=== PATIENT | female | born 1985 | race Caucasian/White ===

== ENCOUNTER 2023-11-17 10:06 | Outpatient (OUT) | payer OTHER, SELFPAY ==
--- NOTE | 2023-11-17 10:09 | MM_ITS ---
Patient Name: ANTONIETTA TOM MR#: [id number] : 1985 Exam Date: 11/17/2023 Ordering Doctor: DR Marlo Zimmer . RADIOLOGY REPORT PROCEDURE: MM TOMOSYNTHESIS SCREENING BI COMPARISON: None. INDICATIONS: screening Calculator Name NCI Breast Cancer Risk Assessment Tool 5 Year Breast Cancer Risk 0.40% Lifetime Breast Cancer Risk 9.20% Personal Breast Cancer No Personal Ovarian Cancer No Treatments None Family Cancers Grandfather-maternal with lung cancer at age 77. LOCATION: [facility] BREAST COMPOSITION: Heterogeneously dense,which may obscure small masses. FINDINGS: DIAGNOSTIC CATEGORY 0--INCOMPLETE: NEED ADDITIONAL IMAGING EVALUATION. Scattered benign-appearing calcifications are present. Multiple bilateral oval and round densities possibly representing fibrocystic disease. As there are no prior exams, bilateral whole breast ultrasound is recommended for further evaluation RECOMMENDATIONS: ULTRASOUND: BILATERAL BREASTS PLEASE NOTE: A NORMAL MAMMOGRAM DOES NOT EXCLUDE THE POSSIBILITY OF BREAST CANCER. A CLINICALLY SUSPICIOUS PALPABLE LUMP SHOULD BE BIOPSIED. Dictated by: Tripp Iraheta MD on 11/17/2023 at 11:30 Approved by: Tripp Iraheta MD on 11/17/2023 at 11:42
[2023-11-17 10:57] LABS: Basophils Absolute Auto 0.1 10^3/uL (0.0-0.1); Basophils Percent Auto 0.9 % (0.2-2.0); Eosinophils Absolute Auto 0.3 10^3/uL (0.0-0.7); Eosinophils Percent Auto 4.5 % (0.9-7.0); Hematocrit 37.1 % (36.0-48.0); Immature Granulocytes Abs Auto 0.02 10^3/uL (0.00-0.03); Immature Granulocytes Pct Auto 0.4 % (0.0-0.5); Lymphocytes Absolute Auto 1.1 10^3/uL (1.2-3.8); Lymphocytes Percent Auto 20.2 % (20.5-60.0); Mean Corpuscular HGB Conc 32.3 g/dL (29.9-35.2); Mean Corpuscular Hemoglobin 28.6 pg (26.7-34.0); Mean Corpuscular Volume 88.3 fL (81.0-99.0); Mean Platelet Volume 10.3 fL (9.5-13.5); Monocytes Absolute Auto 0.5 10^3/uL (0.3-0.8); Monocytes Percent Auto 8.5 % (1.7-12.0); Neutrophils Absolute Auto 3.6 10^3/uL (1.4-6.5); Neutrophils Percent Auto 65.5 % (43.0-75.0); Platelet Count 228 10^3/uL (150-450); White Blood Count 5.5 10^3/uL (4.0-11.0)
[2023-11-17 12:02] LABS: Alanine Aminotransferase 16 U/L (14-59); Albumin Globulin Ratio 0.9; Albumin Level 3.3 g/dL (3.4-5.0); Alkaline Phosphatase 60 U/L (46-116); Anion Gap 10.8; Aspartate Amino Transferase 14 U/L (15-37); BUN Creatinine Ratio 10.4; Bilirubin Total 0.2 mg/dL (0.2-1.0); Calcium 8.1 mg/dL (8.5-10.1); Carbon Dioxide 28.5 mmol/L (21.0-32.0); Chloride 108 mmol/L (98-107); Estimated GFR (African America >60 (>=60); Estimated GFR (Non-African Ame >60 (>=60); Free T3 2.42 pg/mL (2.18-3.98); Globulin 3.8 g/dL; Glucose 98 mg/dL (74-106); Potassium 4.3 mmol/L (3.5-5.1); Sodium 143 mmol/L (136-145); Total Protein 7.1 g/dL (6.4-8.2)
[2023-11-17 12:06] LABS: Estimated Average Glucose 97 mg/dL
[2023-11-17 12:50] LABS: Cholesterol 164 mg/dL (<=200); HDL Cholesterol 54 mg/dL (40-60); LDL Cholesterol Calculated 100.8 mg/dL; Triglycerides 46 mg/dL (<=150); VLDL CHOLESTEROL 9.2 mg/dL
== END 2023-11-17 10:07 | disposition home or self-care (01) ==
LOC: MAMMO 10:06
PROVIDERS: PCP Family Medicine; Visit Provider Family Medicine
DX: Z00.00 Encounter for general adult medical examination without abnormal findings (principal); Z12.31 Encounter for screening mammogram for malignant neoplasm of breast; Z80.1 Family history of malignant neoplasm of trachea, bronchus and lung
CPT/HCPCS: 36415; 77063; 77067; 80053; 80061; 83036; 84436; 84443; 84481; 85025

== ENCOUNTER 2023-11-30 11:28 | Outpatient (OUT) | payer OTHER, SELFPAY ==
--- NOTE | 2023-11-30 11:31 | US_ITS ---
Patient Name: ANTONIETTA TOM MR#: [id number] : 1985 Exam Date: 11/30/2023 Ordering Doctor: DR Marlo Zimmer . RADIOLOGY REPORT PROCEDURE: US BREAST BI COMPLETE COMPARISON: MM TOMOSYNTHESIS SCREENING BI, 11/17/2023. INDICATIONS: Abnormal Mammogram Of Both Breast R92.8 TECHNIQUE: Breast ultrasound was performed, with evaluation focusing only on specific areas of concern. FINDINGS: Bilateral whole breast ultrasound demonstrates numerous bilateral cystic lesion DIAGNOSTIC CATEGORY 2--BENIGN FINDING: measuring up to 1.6 cm on the right and 2.9 cm on the left. The most suspicious lesion is in the left breast measures 1.4 x 0.7 x 1.0 cm with multiple internal septations but no definite color flow. I favor simple and complex cysts, no additional imaging is required. RECOMMENDATIONS: CLINICAL EVALUATION. PLEASE NOTE: A NORMAL ULTRASOUND EXAMINATION DOES NOT EXCLUDE THE POSSIBILITY OF BREAST CANCER. A CLINICALLY SUSPICIOUS PALPABLE LUMP SHOULD BE BIOPSIED. Dictated by: Tripp Iraheta MD on 11/30/2023 at 12:46 Approved by: Tripp Iraheta MD on 11/30/2023 at 12:49
--- OUTSIDE RECORDS SUMMARY | 2023-11-30 11:42 | XMS_ITS | CCD ---
Author Name Unknown Address [address] [place] [id number] Organization [facility] Care Team Providers Care Salon Stylist Name Role Phone DR JULIETH ZIMMER Primary Care Unavailable BIBIANA COLON Attending Unavailable BIBIANA COLON Consulting Unavailable BIBIANA COLON Admitting Unavailable DR ALEX BROWNING Consulting Unavailable DR ALEX BROWNING Admitting Unavailable DR CHAUNCEY ALBERT Primary Care Unavailable DR ALEX BROWNING Attending Unavailable Problems Problem Classification Problem Date Documented Date Episodic/Chronic Immunizations and screening for infectious disease (1 source) Encounter for screening for human papillomavirus (HPV); Translations: [ENC SCREENING HUMAN PAPILLOMAVIRUS] Onset: 02-07-2021 Episodic Other screening for suspected conditions (not mental disorders or infectious disease) (4 sources) Encounter for screening for malignant neoplasm of cervix; Translations: [ENC SCREENING MALIG NEOPLASM CERV] Onset: 01-31-2021 Episodic Results Test Name Value Interpretation Reference Range Facility INSULINon 07-30-2021 Insulin 4.6 uIU/mL Normal 2.6-24.9 [facility] Comment on above: Performed By: #### I NSULIN #### [facility] [address] [place] [address] Dr. Ayde Fletcher CBC AUTO DIFFon 07-29-2021 BASO # 0.0 103/ul Normal 0.0-0.1 [facility] Comment on above: Performed By: #### C BC #### [facility] [address] [place] [address] Dr. Ayde Fletcher Basophils/100 WBC (Bld) 0.5 % Normal 0.2-2.0 [facility] Comment on above: Performed By: #### C BC #### [facility] [address] [place] [address] Dr. Ayde Fletcher EO # 0.2 103/ul Normal 0.0-0.7 [facility] Comment on above: Performed By: #### C BC #### [facility] [address] [place] [address] Dr. Ayde Fletcher Eosinophils/100 WBC (Bld) 3.3 % Normal 0.9-7.0 [facility] Comment on above: Performed By: #### C BC #### [facility] [address] [place] [address] Dr. Ayde Fletcher Erythrocyte distribution width (RBC) [Ratio] 13.5 % Normal 11.0-15.0 [facility] Comment on above: Performed By: #### C BC #### [facility] [address] [place] [address] Dr. Ayde Fletcher Hematocrit (Bld) [Volume fraction] 39.4 % Normal 36.0-48.0 [facility] Comment on above: Performed By: #### C BC #### [facility] [address] [place] [address] Dr. Ayde Fletcher Hemoglobin (Bld) [Mass/Vol] 12.8 g/dL Normal 12.0-16.0 [facility] Comment on above: Performed By: #### C BC #### [facility] [address] [place] [address] Dr. Ayde Fletcher IG # 0.03 10e3/ul Normal 0.00-0.03 [facility] Comment on above: Performed By: #### C BC #### [facility] [address] [place] [address] Dr. Ayde Fletcher IG % 0.5 % Normal 0.0-0.5 [facility] Comment on above: Performed By: #### C BC #### [facility] [address] [place] [address] Dr. Ayde Fletcher LYMPH # 1.2 103/ul Normal 1.2-3.8 [facility] Comment on above: Performed By: #### C BC #### [facility] [address] [place] [address] Dr. Ayde Fletcher Lymphocytes/100 WBC (Bld) 22.1 % Normal 20.5-60.0 [facility] Comment on above: Performed By: #### C BC #### [facility] [address] [place] [address] Dr. Ayde Fletcher MANUAL DIFF REQ NO Normal [facility] Comment on above: Performed By: #### C BC #### [facility] [address] [place] [address] Dr. Ayde Fletcher MCH (RBC) [Entitic mass] 29.4 pg Normal 26.7-34.0 [facility] Comment on above: Performed By: #### C BC #### [facility] [address] [place] [address] Dr. Ayde Fletcher MCHC (RBC) [Mass/Vol] 32.5 g/dL Normal 29.9-35.2 [facility] Comment on above: Performed By: #### C BC #### [facility] [address] [place] [address] Dr. Ayde Fletcher MCV (RBC) [Entitic vol] 90.4 fL Normal 81.0-99.0 [facility] Comment on above: Performed By: #### C BC #### [facility] [address] [place] [address] Dr. Ayde Fletcher MONO # 0.4 103/ul Normal 0.3-0.8 [facility] Comment on above: Performed By: #### C BC #### [facility] [address] [place] [address] Dr. Ayde Fletcher Monocytes/100 WBC (Bld) 7.6 % Normal 1.7-12.0 [facility] Comment on above: Performed By: #### C BC #### [facility] [address] [place] [address] Dr. Ayde Fletcher NEUT # 3.7 103/ul Normal 1.4-6.5 [facility] Comment on above: Performed By: #### C BC #### [facility] [address] [place] [address] Dr. Ayde Fletcher Neutrophils/100 WBC (Bld) 66.0 % Normal 43.0-75.0 [facility] Comment on above: Performed By: #### C BC #### [facility] [address] [place] [address] [address] Ayde Fletcher Platelet mean volume (Bld) [Entitic vol] 10.4 fL Normal 9.5-13.5 [facility] Comment on above: Performed By: #### C BC #### [facility] [address] [place] [address] [address] Ayde Fletcher PLT 188 103/ul Normal 150-450 [facility] Comment on above: Performed By: #### C BC #### [facility] [address] [place] [address] [address] Ayde Fletcher RBC 4.36 106/ul Normal 4.20-5.40 [facility] Comment on above: Performed By: #### C BC #### [facility] [address] [place] [address] [address] Ayde Fletcher WBC 5.5 103/ul Normal 4.0-11.0 [facility] Comment on above: Performed By: #### C BC #### [facility] [address] [place] [address] [address] Ayde Fletcher FREE THYROXINE INDEX T7on FTI 2.90 Normal [facility] Comment on above: Performed By: #### T SH, CMP, T7, LIPID #### [facility] [address] [place] [address] [address] Ayde Fletcher T3U 33.0 % Normal 23.5-40.5 [facility] Comment on above: Performed By: #### T SH, CMP, T7, LIPID #### [facility] [address] [place] [address] [address] Ayde Fletcher T4 [Mass/Vol] 8.80 ug/dL Normal 5.53-11.00 [facility] Comment on above: Performed By: #### T SH, CMP, T7, LIPID #### [facility] [address] [place] [address] [address] Ayde Fletcher GLYCOHEMOGLOBIN A1Con 2020 ADA RECOMMENDATION ADA THERAPEUTIC TARG ET 6.0 - 7.0 ACTION SUGGESTED > 7.0 Normal [facility] Comment on above: Performed By: #### A 1C #### [facility] [address] [place] [address] [address] Ayde Fletcher Glucose [Mass/Vol] 105 mg/dL Normal [facility] Comment on above: Performed By: #### A 1C #### [facility] [address] [place] [address] [address] Ayde Fletcher HbA1c (Bld) [Mass fraction] 5.3 % Normal <=6.0 [facility] Comment on above: Performed By: #### A 1C #### [facility] [address] [place] [address] [address] Ayde Fletcher IRONon 07-29-2021 Iron [Mass/Vol] 69.0 ug/dL Normal 37.0-170.0 [facility] Comment on above: Performed By: #### I ISAAC #### [facility] [address] [place] [address] Dr. Ayde Fletcher LIPID PROFILEon 07-29-2021 CHOL-HDL RATIO NORM SEE BELOW Normal [facility] Comment on above: Result Comment: 3.3 - 4.4 LOW RISK 4.4 - 7.1 AVERAGE RISK 7.1 - 11.0 MODERATE RISK >11.0 HIGH RISK Performed By: #### T SH, CMP, T7, LIPID #### [facility] [address] [place] [address] Dr. Ayde Fletcher Cholesterol [Mass/Vol] 167 mg/dL Normal <=200 [facility] Comment on above: Performed By: #### T SH, CMP, T7, LIPID #### [facility] [address] [place] [address] [address] Ayde Fletcher Cholesterol in HDL [Mass/Vol] 66 mg/dL Normal [facility] Comment on above: Performed By: #### T SH, CMP, T7, LIPID #### [facility] [address] [place] [address] [address] Ayde Fletcher Cholesterol in LDL [Mass/Vol] 92.2 mg/dL Normal [facility] Comment on above: Performed By: #### T SH, CMP, T7, LIPID #### [facility] [address] [place] [address] [address] Ayde Fletcher Cholesterol.total/Cho lesterol in HDL [Mass ratio] 2.5 {ratio} Normal [facility] Comment on above: Performed By: #### T SH, CMP, T7, LIPID #### [facility] [address] [place] [address] [address] Ayde Fletcher HDL NORMAL > or = 60 mg/dl - LO W CARDIOVASCULAR RISK <40 mg/dl - HIGH CARDIOVASCULAR RISK Normal [facility] Comment on above: Performed By: #### T SH, CMP, T7, LIPID #### [facility] [address] [place] [address] [address] Ayde Fletcher LDL CALC NORMAL SEE BELOW Normal [facility] Comment on above: Result Comment: <100 mg/dl OPTIMAL 100 - 129 mg/dl NEAR OR ABOVE OPTIMAL 130 - 159 mg/dl BORDERLINE HIGH 160 - 189 mg/dl HIGH >190 mg/dl VERY HIGH Performed By: #### T SH, CMP, T7, LIPID #### [facility] [address] [place] [address] [address] Ayde Fletcher Triglyceride [Mass/Vol] 44 mg/dL Normal <=150 [facility] Comment on above: Performed By: #### T SH, CMP, T7, LIPID #### [facility] [address] [place] [address] [address] Ayde Fletcher VLDL CALC 8.8 mg/dL Normal [facility] Comment on above: Performed By: #### T SH, CMP, T7, LIPID #### [facility] [address] [place] [address] [address] Ayde Fletcher PROF 14(COMP METB)on 021 Albumin [Mass/Vol] 3.8 g/dL Normal 3.5-5.0 [facility] Comment on above: Performed By: #### T SH, CMP, T7, LIPID #### [facility] [address] [place] [address] [address] Ayde Fletcher Albumin/Globulin [Mass ratio] 1.1 {ratio} Normal [facility] Comment on above: Performed By: #### T SH, CMP, T7, LIPID #### [facility] [address] [place] [address] [address] Ayde Fletcher ALP [Catalytic activity/Vol] 54 U/L Normal 38-126 [facility] Comment on above: Performed By: #### T SH, CMP, T7, LIPID #### [facility] [address] [place] [address] Dr. Ayde Fletcher ALT [Catalytic activity/Vol] 12 U/L Normal 9-52 [facility] Comment on above: Performed By: #### T SH, CMP, T7, LIPID #### [facility] [address] [place] [address] Dr. Ayde Fletcher Anion gap [Moles/Vol] 9.8 mmol/L Normal [facility] Comment on above: Performed By: #### T SH, CMP, T7, LIPID #### [facility] [address] [place] [address] Dr. Ayde Fletcher AST [Catalytic activity/Vol] 14 U/L Normal 14-36 [facility] Comment on above: Performed By: #### T SH, CMP, T7, LIPID #### [facility] [address] [place] [address] Dr. Ayde Fletcher Bilirubin [Mass/Vol] 0.5 mg/dL Normal 0.2-1.3 [facility] Comment on above: Performed By: #### T SH, CMP, T7, LIPID #### [facility] [address] [place] [address] Dr. Ayde Fletcher Calcium [Mass/Vol] 8.7 mg/dL Normal 8.4-10.2 [facility] Comment on above: Performed By: #### T SH, CMP, T7, LIPID #### [facility] [address] [place] [address] Dr. Ayde Fletcher Chloride [Moles/Vol] 104 mmol/L Normal 98-107 [facility] Comment on above: Performed By: #### T SH, CMP, T7, LIPID #### [facility] [address] [place] [address] Dr. Ayde Fletcher CO2 [Moles/Vol] 29.3 mmol/L Normal 22.0-30.0 [facility] Comment on above: Performed By: #### T SH, CMP, T7, LIPID #### [facility] [address] [address] [address] Ayde Fletcher Creatinine [Mass/Vol] 0.92 mg/dL Normal 0.52-1.04 [facility] Comment on above: Performed By: #### T SH, CMP, T7, LIPID #### [facility] [address] [place] [address] [address] Ayde Fletcher EGFR-AF MONTSERRATIAN >60 Normal >=60 [facility] Comment on above: Performed By: #### T SH, CMP, T7, LIPID #### [facility] [address] [place] [address] Dr. Ayde Fletcher EGFR-NON AF MONTSERRATIAN >60 Normal >=60 [facility] Comment on above: Performed By: #### T SH, CMP, T7, LIPID #### [facility] [address] [place] [address] [address] Ayde Fletcher Globulin (S) [Mass/Vol] 3.5 g/dL Normal [facility] Comment on above: Performed By: #### T SH, CMP, T7, LIPID #### [facility] [address] [place] [address] Dr. Ayde Fletcher Glucose [Mass/Vol] 91 mg/dL Normal 74-106 [facility] Comment on above: Performed By: #### T SH, CMP, T7, LIPID #### [facility] [address] [place] [address] Dr. Ayde Fletcher Potassium [Moles/Vol] 4.1 mmol/L Normal 3.4-5.0 [facility] Comment on above: Performed By: #### T SH, CMP, T7, LIPID #### [facility] [address] [place] [address] Dr. Ayde Fletcher Protein [Mass/Vol] 7.3 g/dL Normal 6.1-8.2 [facility] Comment on above: Performed By: #### T SH, CMP, T7, LIPID #### [facility] [address] [place] [address] Dr. Ayde Fletcher Sodium [Moles/Vol] 139 mmol/L Normal 137-145 [facility] Comment on above: Performed By: #### T SH, CMP, T7, LIPID #### [facility] [address] [place] [address] [address] Ayde Fletcher Urea nitrogen [Mass/Vol] 13.0 mg/dL Normal 7.0-17.0 [facility] Comment on above: Performed By: #### T SH, CMP, T7, LIPID #### [facility] [address] [place] [address] Dr. Ayde Fletcher Urea nitrogen/Creatinine [Mass ratio] 14.1 mg/mg Normal [facility] Comment on above: Performed By: #### T SH, CMP, T7, LIPID #### [facility] [address] [place] [address] Dr. Ayde Fletcher TSHon 07-29-2021 TSH 1.536 uIU/mL Normal 0.470-4.680 [facility] Comment on above: Performed By: #### T SH, CMP, T7, LIPID #### [facility] [address] [place] [address] Dr. Ayde Fletcher TSH RANGE SEE BELOW [facility] Comment on above: Result Comment: <0.3 4 UIU/ml HYPERTHYROID 0.34-5.60 UIU/ml EUTHYROID >5.60 UIU/ml HYPOTHYROID Performed By: #### T SH, CMP, T7, LIPID #### [facility] [address] [place] [address] Dr. Ayde Fletcher PAP ACOG PANEL 2: 30 to 65on 02-05-2021 . . Normal [facility] Comment on above: Result Comment: Perf ormed at: WB Performed By: #### [id number] #### [facility] [address] [place] [address] Marita Martinez Age Gdln ACOG Testing 30-65 Normal [facility] Comment on above: Performed By: #### [id number] #### [facility] [address] [place] [address] Maritatessa Jayen DIAGNOSIS: Comment Normal [facility] Comment on above: Result Comment: NEGA TIVE FOR INTRAEPITHELIAL LESION OR MALIGNANCY. CELLULAR CHANGES ASSOCIATED WITH INFLAMMATION ARE PRESENT. Performed at: WB Performed By: #### [id number] #### [facility] [address] [place] [address] Marita Martinez HPV Aptima Negative Normal Negative [facility] Comment on above: Result Comment: This nucleic acid amplification test detects fourteen high-risk HPV types (16,18,31,33,35,39,45,51,52,56,58,59,66,68) without differentiation. Performed at: =G Performed By: #### [id number] #### [facility] [address] [place] [address] Maritatessa Jayen Methodology: Comment Normal [facility] Comment on above: Result Comment: This liquid based ThinPrep(R) pap test was screened with the use of an image guided system. Performed at: WB Performed By: #### [id number] #### [facility] [address] [place] [address] Marita Martinez Note: Comment Normal [facility] Comment on above: Result Comment: The Pap smear is a screening test designed to aid in the detection of premalignant and malignant conditions of the uterine cervix. It is not a diagnostic procedure and should not be used as the sole means of detecting cervical cancer. Both false-positive and false-negative reports do occur. . Performed at: WB Performed By: #### [id number] #### [facility] [address] [place] [address] Marita Martinez Performed by: Comment Normal [facility] Comment on above: Result Comment: Carolyne Escobar, Wirer Maintenance (ASCP) Performed at: WB Performed By: #### [id number] #### [facility] [address] [place] [address] Marita Martinez Specimen adequacy: Comment Normal [facility] Comment on above: Result Comment: Sati sfactory for evaluation. Endocervical and/or squamous metaplastic cells (endocervical component) are present. Performed at: WB Performed By: #### 4 [id number] #### [facility] [address] [id number] Marita Martinez Coding Summary.on 11-08-2020 Coding Summary. CODING DATE: 11/08/[address] [facility] STATUS: PAYOR: [facility] [place] ADMIT DX: REASON FOR VISIT DX: K29.70 Gastritis, unspecified, without bleeding FINAL DX: PRINCIPAL: K29.70 Gastritis, unspecified, without bleeding SECONDARY: PYMT PROC APC STAT DESCRIPTION DOCTOR NAME DATE NOTE: The code number assigned matches the documented diagnosis and / or procedure in the patient's chart. However, the narrative phrase printed from the coding software may appear abbreviated, or result in slightly different terminology. Coded By: Gia Schulz CphT Date Saved: 11/08/2020 09:30 pm Normal [facility] H. pylori Stool Agon 020 H. pylori Ag IA Ql (Stl) Negative Negative [facility] Comment on above: Result Comment: Perf ormed at: [facility] [address] [id number] MD Jonel Cisse Performed By: #### 1 [id number] ####[facility] [address] [place] [address] Auth for Release of Medical Recordson 09-06-2020 Auth for Release of Medical Records [id number] 0CD:127 Normal [facility] IntraOperative Documentson 1 10-28-2019 IntraOperative Documents [id number] 0CD:127 Normal [facility] Coding Summary.on 08-23-2020 Coding Summary. CODING DATE: 08/23/[address] [facility] STATUS: Home (Routine DC) PAYOR: [facility] [place] APC DESCRIPTION 5301 Level 1 Upper GI Procedures ADMIT DX: REASON FOR VISIT DX: K21.9 Gastro-esophageal reflux disease without esophagitis FINAL DX: PRINCIPAL: K29.50 Unspecified chronic gastritis without bleeding SECONDARY: B96.81 Helicobacter pylori [H. pylori] as the cause of diseases classified elsewhere K21.9 Gastro-esophageal reflux disease without esophagitis R13.10 Dysphagia, unspecified F41.9 Anxiety disorder, unspecified PYMT PROC APC STAT DESCRIPTION DOCTOR NAME DATE 45694 5301 T BONG SCHUSTER, Hakeem Simeon 08/17/2020 phagogastroduodenoscop y, flexible, transoral; with biopsy, single or multiple 26778 Anesthesia for upper Igor King MD 08/17/2020 gastrointestinal endoscopic procedures, endoscope introduced proximal to duodenum; not otherwise specified NOTE: The code number assigned matches the documented diagnosis and / or procedure in the patient's chart. However, the narrative phrase printed from the coding software may appear abbreviated, or result in slightly different terminology. Revised Coded By: Marissa Blum Revised Date Saved: 08/23/2020 01:39 pm Normal [facility] Progress Note-Physicianon Progress Note-Physician Patient: ANTONIETTA TOM Age: 35 years Sex: Female : 1985 Associated Diagnoses: None Author: Igor King MD Preoperative Information Anesthesia history: Patient History: No personal or Family history of problems with anesthesia. Re-eval prior to induction: Inital eval reviewed: No significant interval change. Review of Systems Constitutional: Negative. Cardiovascular: Cardiovascular risk stratafacation reviewed, 1 FOS without difficulty, No chest pain. Respiratory: No SOB. Hematology/Lymphatics: Negative. Gastrointestinal: as per HPI. Musculoskeletal: Negative. Neurologic: Negative. Health Status Allergies: Allergic Reactions (Selected) No Known Allergies No Known Medication Allergies Current medications: (Selected) Inpatient Medications Ordered Sodium Chloride 0.9% IV Joi 1000 mL 1,000 mL: 1,000 mL, IV, 20 mL/hr, Routine, Start date 08/17/20 8:51:00 EST, 50 hour(s), Total volume (mL): 1,000, 58.7 kg, 1.62, m2 Documented Medications Documented Protonix 40 mg Tab-DR: 40 mg = 1 tab(s), Oral, Daily, Refills(s) 0, Control of stomach acid citalopram 20 mg Tab: 20 mg = 1 tab(s), Oral, Daily, Refills(s) 0, Anxiety hydrOXYzine pamoate 25 mg Cap: 25 mg = 1 cap(s), Oral, QID, PRN anxiety, Refills(s) 0 sucralfate tab: 1 gm = 1 tab(s), Oral, QIDACHS, Refills(s) 0, Control of stomach acid Problem list: All Problems Epigastric pain / SNOMED CT 792671037 / Confirmed Easy bruisability / SNOMED CT 1023680564 / Confirmed Recent weight loss / SNOMED CT 1550935768 / Confirmed GERD (gastroesophageal reflux disease) / SNOMED CT 164364709 / Confirmed Anxiety / SNOMED CT 90224692 / Confirmed Histories Past Medical History: No active or resolved past medical history items have been selected or recorded. Procedure history: section ([id number]). Comments: 07/25/2020 14:24 EDT - Lisset TSANG, Lorrie Yanes x 2 Social History Social & Psychosocial Habits Alcohol 07/25/2020 Risk Assessment: Denies Alcohol Use Substance Abuse 07/25/2020 Risk Assessment: Denies Substance Abuse Tobacco 07/25/2020 Tobacco Use: Never (less than 100 in l . Physical Examination Pain assessment: Self-reports no pain. Airway: Mallampati classification: II (soft palate, fauces, uvula visible). Distance: Adequate. Mouth: Adequate opening. Neck: Full range of motion. Respiratory: Respirations are non-labored. Cardiovascular: Regular rhythm. Neurologic: Alert, Oriented. Review / Management Results review: No qualifying data available . Plan [place] [employer]hesi[employer] (ASA) physical status classification: Class II. Anesthetic Preoperative Plan Anesthesia: General. , Pt advised of the benefits of obstaining from tobacco products. Anesthetic plan, risks, benefits, and alternatives discussed with the patient and/or family. Patient verbalized understanding. Pt agrees with anesthetic plan and accepts all risks including but not limited to; Bleeding, infection(including covid-19), nerve injury, dental injury, eye injury, headache, low blood pressure, serious problems with the heart and lungs, allergic reactions, and .. Normal [facility] Comment on above: Result Comment: Elec tronically Signed By: Fernando SCHUSTER, Igor\.br\Date and Time Signed: 08/22/20 10:10 EST Main OR Intraoperative Recor don 08-21-2020 Main OR Intraoperative Record IntraOp Document Type FT Summary Primary Physician: Hakeem LAZO MD Finalized Date/Time: 08/21/20 16:27:32 Pt. Name: ANTONIETTA TOM /Sex: 1985 Female Med Rec #: [id number] Physician: BONG SCHUSTER, Hakeem Simeon Financial #: [id number] Pt. Type: O Room/Bed: / Admit/Disch: 08/17/20 08:18:59 - 08/17/20 23:59:59 Institution: Case Times FT Entry 1 Patient Times In Room 08/17/20 09:21:00 Out Room 08/17/20 09:33:00 Procedure Times Start 08/17/20 09:25:00 Stop 08/17/20 09:29:00 Anesthesia Times Start 08/17/20 09:21:00 Stop 08/17/20 09:33:00 Last Modified By: Leon Chandler RN 08/17/20 09:35:24 General Comments: 08/21/2020 - chart logged and finalized for charges. 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 - Primary Record Time In 08/17/20 09:21:00 08/17/20 09:21:00 08/17/20 09:21:00 Time Out 08/17/20 09:33:00 08/17/20 09:33:00 08/17/20 09:33:00 Procedure EGD(.) EGD(.) EGD(.) Comments Last Modified By: Leon Chandler RN, RN, Leon Chandler RN, Leon White 08/17/20 09:35:28 08/17/20 09:35:28 08/17/20 09:35:28 Entry 4 Case Attendee Tye Bowman CST Role Performed Scrub - Primary Time In 08/17/20 09:21:00 Time Out 08/17/20 09:33:00 Procedure EGD(.) Comments Last Modified By: Leon Chandler RN 08/17/20 09:35:28 Perioperative Protocols FT Pre-Care Text: Implements protective measures prior to operative or invasive procedure, confirms identity before the operative or invasive procedure, verifies operative procedure, surgical site, and laterality Entry 1 Procedure(s) EGD(.) Patient Identity Birthday, ID Band Verified (select at Check, Patient least 2): Participation Consents / H and P Anesthesia Consent, Operative Site N/A Verified HandP, Surgery/Procedure Marking Verified Consent Surgical Site No Laterality Verified n/a Verified Procedure Verified Yes Correct Patient Yes Position Verified Availability Equipment, Medication Prep Dry n/a Verified (If Applicable) PreOp Antibiotic No Time Out Fernando SCHUSTER, BONG Costa MD, Michael R, Souter RN, Morgan E, Barker CST, Foster M Time Out Complete 08/17/20 09:23:00 Outcomes Met? Yes Last Modified By: Leon Chandler RN 08/17/20 09:25:08 Post-Care Text: The patient is free from signs and symptoms of injury caused by extraneous objects Allergy Information FT Pre-Care Text: Verifies allergies Entry 1 Allergies Reviewed? Yes Allergies Reviewed Self/Patient With Outcomes Met? Yes Last Modified By: Leon Chandler RN 08/17/20 07:28:53 Post-Care Text: The patient received appropriate medication(s) safely administered during the perioperative period Surgical Procedures FT Entry 1 Procedure Description Procedure EGD Modifiers . Surgeon Description EGD with gastric biopsies. Primary Procedure Yes Primary Surgeon Hakeem LAZO MD Start 08/17/20 09:25:00 Stop 08/17/20 09:29:00 Anesthesia Type General Surgical Service General Wound Class 2 - Clean-Contaminated Last Modified By: Leon Chandler RN 08/17/20 09:29:43 General Case Data FT Pre-Care Text: Classifies surgical wound, implements aseptic technique, initiates traffic control Entry 1 Case Information OR ENDO 2 FT Case Level Level 2 Wound Class 2 - Clean-Contaminated Specialty General ASA Class 2 Preop Diagnosis GERD and EPIGASTRIC PAIN Postop Same As Preop No Postop Diagnosis Gastritis Outcomes Met? Yes Last Modified By: Leon Chandler RN 08/17/20 09:50:23 Post-Care Text: The patient is free from signs and symptoms of infection Skin Assessment (Pre Procedure) FT Pre-Care Text: Implements protective measures to prevent skin/ tissue injury due to thermal or mechanical sources Evaluates for signs and symptoms of physical injury to skin and tissue Entry 1 Skin Integrity Dry, Warm Skin Abnormality No Outcomes Met? Yes Last Modified By: Leon Chandler RN 08/17/20 07:29:27 Post-Care Text: The patient is free from signs and symptoms of injury caused by extraneous objects Patient Positioning FT Pre-Care Text: Identifies physical alterations that require additional precautions for procedure-specific positioning, verifies presence of prosthetics or corrective devices, positions the patient, evaluates the patient for signs and symptoms of injury as a result of positioning Entry 1 Procedure EGD(.) Body Position Lateral, right side up Feet Uncrossed? Yes Left Arm Position Resting at Side Right Arm Position Resting at Side Left Leg Position Extended Right Leg Position Extended Positioning Device Safety Strap, Pillow Under Head Large Press Points Checked Yes By Leon Chandler RN Outcomes Met? Yes Last Modified By: Leon Chandler RN 08/17/20 07:29:34 Post-Care Text: The patient is free from signs and symptoms of injury related to positioning Patient Care Devices FT Pre-Care Text: Implements protective measures to prevent skin/ tissue injury due to thermal or mechanical sources Entry 1 Entry 2 Equipment Type ENDOSCOPY VIDEO MONITOR CHARGE SURGERY SYSTEM[F] [F] Equipment Number [id number] E1 Equipment Setting Outcomes Met? Yes Yes Last Modified By: Leon Chandler RN, RN, Morgan E 08/17/20 07:29:46 08/17/20 07:29:46 Post-Care Text: The patient is free from signs and symptoms of injury caused by extraneous objects Transport To OR Pre-Care Text: Transports according to individual needs. Evaluates for signs and symptoms of skin and tissue injury as a result of transfer or transport Entry 1 Via Cart By Leon Chandler RN Safety Precautions Side Rails Up Outcomes Met? Yes Last Modified By: Leon Chandler RN 08/17/20 07:29:53 Post-Care Text: The patient is free from signs and symptoms of injury related to transfer/transport Departure From OR Pre-Care Text: Transports according to individual needs. Evaluates for signs and symptoms of skin and tissue injury as a result of transfer or transport. Entry 1 Via Cart Safety Precautions Safety Strap, Side Rails Up PostOp Destination PACU Transported By Leon Chandler RN Patient Status Stable Skin. Condition Dry, Warm Airway Maintenance Oxygen in Use? No Outcomes Met? Yes Last Modified By: Leon Chandler RN 08/17/20 07:30:39 Post-Care Text: The patient is free from signs and symptoms of injury related to transfer/transport General Comments: report given to PACU nurse. MSRN Medication Administration FT Pre-Care Text: Verifies allergies, administers prescribed medications and solutions, administers prescribed antibiotic therapy and immunizing agents as ordered, evaluates response to medications Administers prescribed medications and solutions Entry 1 Expiration Date Yes Outcomes Met? Yes Verified Last Modified By: Leon Chandler RN 08/17/20 07:30:47 Post-Care Text: The patient received appropriate medication(s) safely administered during the perioperative period For [place] please see scanned medication reconcilliation form for medications used at the field during the procedure. Cultures and Specimens FT Pre-Care Text: Manages specimen handling and disposition Manages culture specimen collection Entry 1 Cultures Ordered n/a Specimens Ordered Yes Specimen Disposition Designated OR Area Frozen Section Times Outcomes Met? Yes Last Modified By: Leon Chandler RN 08/17/20 09:28:25 Post-Care Text: The patient is free from signs and symptoms of injury caused by extraneous objects The patient is free from signs and symptoms of infection Case Comments Finalized By: СВЕТЛАНА Puentes RN, Andrea Document Signatures Signed By: Leon Chandler RN 08/17/20 09:51 СВЕТЛАНА Puentes RN, Andrea 08/21/20 16:27 [facility] Postoperative Documentson Postoperative Documents [id number]#1. 00CD:127 [facility] Consenton 08-17-2020 Consent [id number]#1. 00CD:127 [facility] Consent for Treatmenton 08-05 Consent for Treatment [id number] 0CD:127 [facility] Discharge Instructionson Discharge Instructions [id number]. 00CD:127 [facility] History and Physicalon 08-17 History and Physical [id number]#1. 00CD:127 Normal [facility] History and Physical Patient: [facility] REMINGTON TOM Age: 35 years Sex: Female : 1985 Associated Diagnoses: None Author: Hakeem LAZO MD Subjective no changes to H & P Normal [facility] Comment on above: Result Comment: Elec tronically Signed By: Hakeem LAZO MD\.br\Date and Time Signed: 08/17/20 09:13 EST Inpatient Patient Summaryon 08-17-2020 Inpatient Patient Summary [place] [id number] [facility] Clinical Discharge Instructions PERSON INFORMATION Name: ANTONIETTA TOM PHYSICIANS Admitting Physician: Hakeem LAZO MD Attending Physician: Hakeem LAZO MD PCP: Julieth Zimmer MD Discharge Diagnosis: Gastritis Comment: PATIENT EDUCATION INFORMATION Instructions: Upper Endoscopy, Adult, Care After Medication Leaflets: Follow up: With: Address: When: Hakeem LAZO [address] [place] [address], [address], [place] [id number] [facility] () Within 7 to 10 days MEDICATION LIST Medications to Continue with No Changes Other Medications citalopram (citalopram 20 mg Tab) 1 Tablets By Mouth every day. hydrOXYzine (hydrOXYzine pamoate 25 mg Cap) 1 Capsules By Mouth 4 times a day as needed anxiety. pantoprazole (Protonix 40 mg Tab-DR) 1 Tablets By Mouth every day. sucralfate (sucralfate tab) 1 Tablets By Mouth four times a day (before meals and at bedtime). Comment: Normal [facility] IntraOperative Documentson 10-17-2019 IntraOperative Documents [id number]. 00CD:127 Normal [facility] IntraOperative Documents [id number]#1. 00CD:127 [facility] Main OR PACU I Recordon 08-05 Main OR PACU I Record PACU Phase I Docum ent Type FT Summary Primary Physician: Hakeem LAZO MD Finalized Date/Time: 08/17/20 11:20:59 Pt. Name: ANTONIETTA TOM Judd Garces/Sex: 1985 Female Med Rec #: [id number] Physician: Hakeem LAZO MD Financial #: [id number] Pt. Type: O Room/Bed: / Admit/Disch: 08/17/20 08:18:59 - Institution: Case Times PACU I FT Pre-Care Text: Identifies barriers to communication and implements measures to provide psychological support Develops individualized plan of care, and ensures continuity of care Maintains patient's dignity and privacy, and maintains patient confidentiality Identifies and reports philosophical, cultural, and spiritual beliefs and values Identifies individual values and wishes concerning care Implements aseptic technique, and administers prescribed antibiotic therapy and immunizing agents as ordered Evaluates postoperative tissue perfusion Implements thermoregulation measures, and monitors body temperature Evaluates postoperative respiratory status Evaluates postoperative cardiac status Evaluates postoperative neurological status Assesses pain control, collaborated in initiating patient-controlled analgesia and implements alternative methods of pain control Verifies allergies, administers prescribed medications and solutions, evaluates response to medications Entry 1 In PACU I 08/17/20 09:35:00 Discharge from PACU 08/17/20 10:10:00 I Outcomes Met? Yes Last Modified By: Leidy Wright RN 08/17/20 11:20:40 Post-Care Text: The patient demonstrates knowledge of the expected response to the operative or invasive procedure The patient's care is consistent with the individualized perioperative plan of care The patient's right to privacy is maintained The patient's value system, lifestyle, ethnicity, and culture are considered, respected, and incorporated into the perioperative plan of care The patient participates in decisions affecting his or her perioperative plan of care The patient is free from signs and symptoms of infection The patient has wound/tissue perfusion consistent with or improved from baseline levels established preoperatively The patient is at or returning to normothermia at the conclusion of the immediate postoperative period The patient's respiratory function is consistent with or improved from baseline levels established preoperatively The patient's cardiovascular status is consistent with or improved from baseline levels established preoperatively The patient's cardiovascular status is consistent with or improved from baseline levels established preoperatively The patient demonstrates and/or reports adequate pain control throughout the perioperative period The patient received appropriate medication(s), safely administered during the perioperative period Acuity Level PACU I FT Entry 1 Start Time 08/17/20 09:35:00 Stop Time 08/17/20 10:10:00 Acuity Level Acuity Level I Last Modified By: Leidy Wright RN 08/17/20 11:20:55 Finalized By: Leidy Wright RN Document Signatures Signed By: Leidy Wright RN 08/17/20 11:20 Normal [facility] Main OR Preoperative Recordo n 08-17-2020 Main OR Preoperative Record Holding Area Document Type FT Summary Primary Physician: Hakeem LAZO MD Finalized Date/Time: 08/17/20 08:39:13 Pt. Name: ANTONIETTA TOM Judd AgostoB./Sex: 1985 Female Med Rec #: [id number] Physician: Hakeem LAZO MD Financial #: [id number] Pt. Type: O Room/Bed: / Admit/Disch: 08/17/20 08:18:59 - Institution: Case Times Holding FT Pre-Care Text: Verifies consent for planned procedure, identifies individual values and wishes concerning care, includes family members in perioperative teaching Secures patient's records' belongings, and valuables, maintains patient's dignity and privacy, and maintains patient confidentiality Entry 1 In Holding 08/17/20 08:35:00 Outcomes Met? Yes Last Modified By: СВЕТЛАНА Slater RN, Lou Ann 08/17/20 08:38:20 Post-Care Text: The patient participates in decisions affecting his or her perioperative plan of care The patient's right to privacy is maintained Surgery Checklist FT Entry 1 Patient Birthday, ID Band Procedure History and Physical, Identification: Check, Patient Verification: Surgical Consent, With Participation Patient NPO after Midnight: Yes Date/Time: 08/16/20 11:00:00 Personal Items: Jewelry Personal Items rings Comment: Complaints of Pain: No Operative Site n/a Marking: Availability Equipment Verified: Patient states Yes Comment - Adult sisterinlaw postop adult Supervision supervision available Case Cancelled in No Holding Area see comments below for reason Last Modified By: СВЕТЛАНА Slater RN, Lou Ann 08/17/20 08:39:11 Finalized By: СВЕТЛАНА Slater RN, Lou Ann Document Signatures Signed By: СВЕТЛАНА Slater RN, Lou Ann 08/17/20 08:39 Normal [facility] Monitor Recordon 08-17-2020 Monitor Record [id number]. 00CD:127 Normal [facility] Monitor Record [id number]#1. 00CD:127 Normal [facility] Outpatient Surgery Discharge Instructionon 08-17-2020 Outpatient Surgery Discharge Instruction [place] [id number] Patient Discharge Instructions PERSON INFORMATION Name: ANTONIETTA TOM Date of : 1985 Current Date: 08/17/2020 09:56:34 PHYSICIANS Admitting Physician: Hakeem LAZO MD Discharge Diagnosis: Gastritis TYREL TOMLUIS Whaley has been given the following list of follow-up instructions, prescriptions, and patient education materials: PATIENT FOLLOW-UP INFORMATION Diet: Regular Discharge Activity: Resume normal activities in 24 hours, Arrange for a responsible adult supervision for 24 hours Discharge Restrictions: No driving for 24 hrs, Do not make important decisions for 24 hours, Do not drink alcoholic beverages for 24 hours Call Your Doctor For: Persistent or heavy bleeding, Temperature above 101.5 degrees, Redness, swelling, or pus at operative site, Severe pain at the operative site, Persistent vomiting IF UNABLE TO CONTACT YOUR PHYSICIAN AND YOU FEEL IT IS AN EMERGENCY, GO TO THE NEAREST EMERGENCY ROOM OR CALL [address]ACI L, have received the attached patient education materials/instructions and have verbalized understanding: May we do a follow up call? Yes No I was present when discharge instructions were given Patient Signature Date Clinican/Nurse Signature ___ Date Follow up: With: Address: When: Hakeem LAZO [address] [place] [address] [place], [address], [facility] [address] [place] [address] Business (1) Within 7 to 10 days Pharmacy Information: Thank you for choosing [facility] HERE ARE THE MEDICATION CHANGES THAT OCCURRED DURING YOUR HOSPITAL STAY Medications to Continue with No Changes Other Medications citalopram (citalopram 20 mg Tab) 1 Tablets By Mouth every day. hydrOXYzine (hydrOXYzine pamoate 25 mg Cap) 1 Capsules By Mouth 4 times a day as needed anxiety. pantoprazole (Protonix 40 mg Tab-DR) 1 Tablets By Mouth every day. sucralfate (sucralfate tab) 1 Tablets By Mouth four times a day (before meals and at bedtime). PATIENT EDUCATION INFORMATION Instructions: Upper Endoscopy, Adult, Care After This sheet gives you information about how to care for yourself after your procedure. Your health care provider may also give you more specific instructions. If you have problems or questions, contact your health care provider. What can I expect after the procedure? After the procedure, it is common to have: ? A sore throat. ? Mild stomach pain or discomfort. ? Bloating. ? Nausea. Follow these instructions at home: ? Follow instructions from your health care provider about what to eat or drink after your procedure. ? Return to your normal activities as told by your health care provider. Ask your health care provider what activities are safe for you. ? Take abcy-epe-mqgygls and prescription medicines only as told by your health care provider. ? Do not drive for 24 hours if you were given a sedative during your procedure. ? Keep all follow-up visits as told by your health care provider. This is important. Contact a health care provider if you have: ? A sore throat that lasts longer than one day. ? Trouble swallowing. Get help right away if: ? You vomit blood or your vomit looks like coffee grounds. ? You have: ? A fever. ? Bloody, black, or tarry stools. ? A severe sore throat or you cannot swallow. ? Difficulty breathing. ? Severe pain in your chest or abdomen. Summary ? After the procedure, it is common to have a sore throat, mild stomach discomfort, bloating, and nausea. ? Do not drive for 24 hours if you were given a sedative during the procedure. ? Follow instructions from your health care provider about what to eat or drink after your procedure. ? Return to your normal activities as told by your health care provider. This information is not intended to replace advice given to you by your health care provider. Make sure you discuss any questions you have with your health care provider. Document Released: 03/22/2013 Document Revised: 03/15/2019 Document Reviewed: 02/21/2019 [employer] Patient Education ? 2019 [employer]. [facility] Patient Education - Texton 1 10-17-2019 Patient Education - Text Gastroenterology Upper Endoscopy, Adult, Care After This sheet gives you information about how to care for yourself after your procedure. Your health care provider may also give you more specific instructions. If you have problems or questions, contact your health care provider. What can I expect after the procedure? After the procedure, it is common to have: ? A sore throat. ? Mild stomach pain or discomfort. ? Bloating. ? Nausea. Follow these instructions at home: ? Follow instructions from your health care provider about what to eat or drink after your procedure. ? Return to your normal activities as told by your health care provider. Ask your health care provider what activities are safe for you. ? Take savz-gra-zdrmcfl and prescription medicines only as told by your health care provider. ? Do not drive for 24 hours if you were given a sedative during your procedure. ? Keep all follow-up visits as told by your health care provider. This is important. Contact a health care provider if you have: ? A sore throat that lasts longer than one day. ? Trouble swallowing. Get help right away if: ? You vomit blood or your vomit looks like coffee grounds. ? You have: ? A fever. ? Bloody, black, or tarry stools. ? A severe sore throat or you cannot swallow. ? Difficulty breathing. ? Severe pain in your chest or abdomen. Summary ? After the procedure, it is common to have a sore throat, mild stomach discomfort, bloating, and nausea. ? Do not drive for 24 hours if you were given a sedative during the procedure. ? Follow instructions from your health care provider about what to eat or drink after your procedure. ? Return to your normal activities as told by your health care provider. This information is not intended to replace advice given to you by your health care provider. Make sure you discuss any questions you have with your health care provider. Document Released: 03/22/2013 Document Revised: 03/15/2019 Document Reviewed: 02/21/2019 [employer] Patient Education ? 2019 [employer] [place]. [facility] Coding Summary.on 08-14-2020 Coding Summary. CODING DATE: 08/14/[address] [facility] STATUS: Home (Routine DC) PAYOR: [facility] [place] ADMIT DX: REASON FOR VISIT DX: Z01.812 Encounter for preprocedural laboratory examination FINAL DX: PRINCIPAL: Z01.812 Encounter for preprocedural laboratory examination SECONDARY: Z20.828 Contact with and (suspected) exposure to other viral communicable diseases PYMT PROC APC STAT DESCRIPTION DOCTOR NAME DATE NOTE: The code number assigned matches the documented diagnosis and / or procedure in the patient's chart. However, the narrative phrase printed from the coding software may appear abbreviated, or result in slightly different terminology. Coded By: Gia Schulz CphT Date Saved: 08/14/2020 09:50 pm [facility] Priority Order-Adeel 2019 Priority Order-STAT Comment [facility] Comment on above: Result Comment: Rece ived Performed at: [facility] [address] [place], [place] [id number] MDPLena Rivera Performed By: #### S ARS-CoV-2, JUAN ALBERTO, [id number] ####[facility] [id number] [place] [address] SARS-CoV-2, NAAon 08-11-2020 SARS CORONAVIRUS 2 RNA:PRTHR:PT:RESPIRAT ORY:ORD:PROBE.AMP.TAR Not Detected Not Detected [facility] Comment on above: Result Comment: This nucleic acid amplification test was developed and its performance characteristics determined by [facility]. Nucleic acid amplification tests include PCR and TMA. This test has not been FDA cleared or approved. This test has been authorized by FDA under an Emergency Use Authorization (EUA). This test is only authorized for the duration of time the declaration that circumstances exist justifying the authorization of the emergency use of in vitro diagnostic tests for detection of SARS-CoV-2 virus and/or diagnosis of COVID-19 infection under section 564(b)(1) of the Act, 21 U.S.C. 360bbb-3(b) (1), unless the authorization is terminated or revoked sooner. When diagnostic testing is negative, the possibility of a false negative result should be considered in the context of a patient's recent exposures and the presence of clinical signs and symptoms consistent with COVID-19. An individual without symptoms of COVID-19 and who is not shedding SARS-CoV-2 virus would expect to have a negative (not detected) result in this assay. Performed at: [facility] [address] [facility] [place] [id number] MD Dio Nixon Performed By: #### S ARS-CoV-2, JUAN ALBERTO, [id number] ####[facility] [id number] [place] [address] Consent for Procedure/Surger yon 07-26-2020 Consent for Procedure/Surgery [id number] 0CD:127 Normal [facility] Physician Orderon 07-26-2020 Physician Order [id number]:[id number] [facility] Provider Letter FTon 07-26 Provider Letter [facility] Julieth Zimmer, [address] [place] [address] [place] [address] Re: ANTONIETTA TOM Date of : 1985 Thank you for your referral of Antonietta Tom who was seen on consultation on July 25, 2020, for epigastric pain with nausea and burning sensation in throat. An EGD under anesthesia is planned for further evaluation of refractory symptoms. I have enclosed my consultation notes for your review and will be happy to follow patient. Sincerely, Hakeem Lazo MD General Surgery [facility] Ambulatory Clinical Summaryo n 07-25-2020 Ambulatory Clinical Summary {[id number] [facility] General Surgery Office/Clini c Noteon 07-25-2020 General Surgery Office/Clinic Note Chief Complaint referral for GERD HPI Staff 35 year old female presents on consultation from Dr. Zimmer for GERD. Complains of epigastric pain with nausea and burning sensation in throat. Denies vomiting. Complaints of stomach burning and bloating as well. Intermittent symptoms since last winter. Has tried Pepcid 20mg BID, Zantac 150mg, tums and Prilosec without relief. Some relief with Protonix and Carafate. 15# weight loss in the past one month. History of Present Illness 35 yo female with h/o anxiety, reports several month h/o uncontrolled GERD, describes burning pain radiating into chest and upper pharynx, worse after eating; improved at times with PPI, but not eliminated; occasional N/V; occasional dysphagia for pills; no regurgitation, no early satiety, has had 15 lb wt loss over the last several months due to decreased oral intake; on multiple medication over last several months with only partial improvement; only abdominal operations are x 2; denies asa or NSAID use; no bowel changes or blood in stools. recent GB US wnl; no fmhx of GI malignancy or IBD. Review of Systems PHQ Score Initial Depression Screen Score: 0 ROS - Provider Constitutional: no fever, no sweats, no weight loss. Eyes: no glasses, no blurred vision, no visual loss. ENMT: no dentures, no hoarseness, yes swallowing difficulties, no hearing loss, no ear infection(s), no nose bleeds. Cardiovascular: normal blood pressure, no chest pain, regular heartbeat, no heart murmur. Respiratory: no shortness of breath, no cough, no asthma, no wheezing. Gastrointestinal: yes nausea, no vomiting, no diarrhea, no constipation, no blood in stool, no change in bowel habits, mild abdominal pain, no hepatitis. Genitourinary: no kidney stones, no urine infection, no dysuria. Musculoskeletal: no pain, no weakness. Skin: no changing moles, no rash, no skin lumps. Neurologic: no seizures, no epilepsy, no headache. Psychiatric: yes emotional or psychiatric problem. Heme/Lymph: no bleeding problems, no anemia, no blood clots, no transfusions. Allergy/Immunologic: no swollen lymph nodes/glands, no IV drug abuse. Other: Additional ROS info: Except as noted in the above Review of Systems and in the History of Present Illness, all other systems have been reviewed and are negative or noncontributory. Physical Exam Vitals & Measurements T: 36.2 ?C (Tympanic) HR: 62(Peripheral) RR: 16 BP: 112/62 HT: 160.02 cm HT: 160.0 cm WT: 58.7 kg WT: 58.7 kg BMI: 22.92 HEENT: normal conjunctiva, sclera clear, no scleral icterus, EOM intact, PERRLA. oral mucosa moist without lesions Neck: trachea midline , no mass, symmetric, no thyromegaly or nodules. no adenopathy Respiratory: lungs CTA, respirations non labored. Cardiovascular: regular rate and rhythm, no murmur, , no pedal edema or varicosities. Gastrointestinal: soft, non distended, no tenderness, no masses, no palpable hernias, diastasis recti no, no hepatosplenomegaly. normal bs Lymphatic: no cervical adenopathy, no axillary adenopathy, no inguinal adenopathy. Musculoskeletal: normalgait, digits and nails without infection, nodes, cyanosis, clubbing. Skin: no rashes, no lesions, no ulcers, no subcutaneous nodules, induration. Psychiatric/Neuro: oriented to time, place, person, judgement normal, affect appropriate for age, insight intact, no focal deficits. Tests: review of old records completed, Discussed surgical options, risks, and possible complications with patient. Assessment/Plan 1. GERD (gastroesophageal reflux disease) (K21.9: Gastro-esophageal reflux disease without esophagitis) plan EGD under anesthesia for further evaluation of refractory symptoms; informed consent obtained. 2. Epigastric pain (R10.13: Epigastric pain) see # 1 3. Recent weight loss (R63.4: Abnormal weight loss) see # 1 Follow-up No qualifying data available Patient Education Esophagogastroduodenos copy Problem List/Past Medical History Ongoing Anxiety Easy bruisability Epigastric pain GERD (gastroesophageal reflux disease) Recent weight loss Historical No qualifying data Procedure/Surgical History section. Medications citalopram 20 mg Tab, 20 mg= 1 tab(s), Oral, Daily hydrOXYzine pamoate 25 mg Cap, 25 mg= 1 cap(s), Oral, QID, PRN Protonix 40 mg Tab-DR, 40 mg= 1 tab(s), Oral, Daily sucralfate tab, 1 gm= 1 tab(s), Oral, QIDACHS Allergies No Known Allergies No Known Medication Allergies Social History Alcohol - Denies Alcohol Use, 07/25/2020 Substance Abuse - Denies Substance Abuse, 07/25/2020 Tobacco Never (less than 100 in lifetime) Tobacco Use:., 07/25/2020 Family History Diabetes mellitus type 1: Brother. Stroke: Father. [facility] Comment on above: Result Comment: Elec tronically Signed By: BONG SCHUSTER, Hakeem Le.raina\Date and Time Signed: 07/25/20 16:36 EDT Patient Educationon 07-25-20 Patient Education Family Medicine Esophagogastroduodenos copy Esophagogastroduodenos copy (EGD) is a procedure to examine the lining of the esophagus, stomach, and first part of the small intestine (duodenum ). A long, flexible, lighted tube with a camera attached (endoscope ) is inserted down the throat to view these organs. This procedure is done to detect problems or abnormalities, such as inflammation, bleeding, ulcers, or growths, in order to treat them. The procedure lasts about 5?20 minutes. It is usually an outpatient procedure, but it may need to be performed in emergency cases in the hospital. LET YOUR CAREGIVER KNOW ABOUT: ? Allergies to food or medicine. ? All medicines you are taking, including vitamins, herbs, eyedrops, and habz-vmv-xefnesh medicines and creams. ? Use of steroids (by mouth or creams). ? Previous problems you or members of your family have had with the use of anesthetics. ? Any blood disorders you have. ? Previous surgeries you have had. ? Other health problems you have. ? Possibility of , if this applies. RISKS AND COMPLICATIONS Generally, EGD is a safe procedure. However, as with any procedure, complications can occur. Possible complications include: ? Infection. ? Bleeding. ? Tearing (perforation ) of the esophagus, stomach, or duodenum. ? Difficulty breathing or not being able to breath. ? Excessive sweating. ? Spasms of the larynx. ? Slowed heartbeat. ? Low blood pressure. BEFORE THE PROCEDURE ? Do not eat or drink anything for 6?8 hours before the procedure or as directed by your caregiver. ? Ask your caregiver about changing or stopping your regular medicines. ? If you wear dentures, be prepared to remove them before the procedure. ? Arrange for someone to drive you home after the procedure. PROCEDURE ? A vein will be accessed to give medicines and fluids. A medicine to relax you (sedative ) and a pain reliever will be given through that access into the vein. ? A numbing medicine (local anesthetic ) may be sprayed on your throat for comfort and to stop you from gagging or coughing. ? A mouth guard may be placed in your mouth to protect your teeth and to keep you from biting on the endoscope. ? You will be asked to lie on your left side. ? The endoscope is inserted down your throat and into the esophagus, stomach, and duodenum. ? Air is put through the endoscope to allow your caregiver to view the lining of your esophagus clearly. ? The esophagus, stomach, and duodenum is then examined. During the exam, your caregiver may: ? Remove tissue to be examined under a microscope (biopsy ) for inflammation, infection, or other medical problems. ? Remove growths. ? Remove objects (foreign bodies ) that are stuck. ? Treat any bleeding with medicines or other devices that stop tissues from bleeding (hot cauters, clipping devices ). ? Widen (dilate ) or stretch narrowed areas of the esophagus and stomach. ? The endoscope will then be withdrawn. AFTER THE PROCEDURE ? You will be taken to a recovery area to be monitored. You will be able to go home once you are stable and alert. ? Do not eat or drink anything until the local anesthetic and numbing medicines have worn off. You may choke. ? It is normal to feel bloated, have pain with swallowing, or have a sore throat for a short time. This will wear off. ? Your caregiver should be able to discuss his or her findings with you. It will take longer to discuss the test results if any biopsies were taken. Document Released: 2006 Document Revised: 09/07/2013 Document Reviewed: 08/24/2013 ExitCare? Patient Information ?2013 [employer]. [facility] Physician Referralon 020 Physician Referral [id number] 00 [id number] 0CD:127 [facility] Encounters Encounter Date Encounter Type Care Provider Facility Start: 08-02-2021 Encounter for genera l adult medical examination without abnormal findings [facility] Start: 07-29-2021 End: 07-30-[address] JULIETH ZIMMER Facility:[facility] Start: 07-29-2021 End: 07-30-2021 Encounter for general adult medical examination without abnormal findings DR JULIETH ZIMMER Facility:[facility] Start: 01-31-2021 End: 01-31-[address] ALEX BROWNING Facility:[facility] Procedures Date Procedure Procedure Detail Performing Clinician Start: 08-17-2020 Esophagogastroduodenoscopy Payers Date Payer Category Payer Unknown [id number] 1985 Unknown [id number] 1958 Unknown [id number] Summary Purpose Family History No Family History Records FoundNo Family History Records Found Advance Directives No Advanced Directives Records FoundNo Advanced Directives Records Found Procedure Findings Note Patient: ANTONIETTA TOM Age: 35 years Sex: Female : 1985 Associated Diagnoses: None Author: Igor King MD Postoperative Information Post Operative Note: Post Anesthesia Care Unit. Anesthetic utilized: General. Health Status Allergies: Allergic Reactions (All) No Known Allergies No Known Medication Allergies Problem list: All Problems Epigastric pain / SNOMED CT 602828187 / Confirmed Easy bruisability / SNOMED CT 6580911662 / Confirmed Recent weight loss / SNOMED CT 5320392372 / Confirmed GERD (gastroesophageal reflux disease) / SNOMED CT 315757672 / Confirmed Anxiety / SNOMED CT 28677637 / Confirmed Physical Examination Intake and Output Adequate hydration Pain assessment: Self-reports no pain. General: Alert and oriented, No acute distress. Eye: Vision unchanged. HENT: Oral mucosa is moist, dentition unchanged. Respiratory: Respirations are non- labored. Cardiovascular: Normal rate, Regular rhythm. Neurologic: Alert, Oriented. Assessment Anesth (more content not included)... Additional Source Comments INFORMATION SOURCE (unrecogn ized section and content) DATE CREATED AUTHOR 11/09/2020 [facility] [employer] [facility] DATE CREATED AUTHOR 'S [facility] 08/04/2021 [facility] FOR RECORDS PERTAINING TO PATIENTS WHO ARE OR HAVE BEEN ENROLLED IN A CHEMICAL DEPENDENCY/SUBSTANCEABUSE PROGRAM, SOME INFORMATION MAY BE OMITTED. This clinical summary was aggregated from multiple sources. Caution should be exercised in using it in the provision of clinical care. This summary normalizes information from multiple sources, and as a consequence, information in this document may materially change the coding, format and clinical context of patient data. In addition, data may be omitted in some cases. CLINICAL DECISIONS SHOULD BE BASED ON THE PRIMARY CLINICAL RECORDS. [facility]. provides no warranty or guarantee of the accuracy or completeness of information in this document.
== END 2023-11-30 11:29 | disposition home or self-care (01) ==
LOC: US 11:28
PROVIDERS: PCP Family Medicine; Visit Provider Family Medicine
DX: R92.8 Other abnormal and inconclusive findings on diagnostic imaging of breast (principal); N60.02 Solitary cyst of left breast; N60.01 Solitary cyst of right breast
CPT/HCPCS: 76641